=== PATIENT | female | born 1965 | race Caucasian/White ===

== ENCOUNTER 2016-11-27 14:07 | Emergency (ER) | payer BC ==
[2016-11-27] MEDS ORDERED: HYDROmorphone HCL 1 MG/ML SYR ONE (14:57)
[2016-11-27] MEDS ORDERED: ONDANSETRON HCL 4 MG/2 ML VIAL ONE (14:57)
[2016-11-27] MEDS ORDERED: LIDOCAINE HCL 1% 20 ML VIAL ONE (15:04)
--- NOTE | 2016-11-27 15:22 | RADIOLOGY REPORT ---
Four views of the right wrist demonstrate a transverse fracture of the distal radial metaphysis. There is approximately 5 mm of dorsal displacement and approximately 30 degrees of apex anterior angulation. I do not identify intraarticular involvement on these views. Nondisplaced ulnar styloid process fracture is also noted. The carpus appears intact. No other abnormality is identified. IMPRESSION: Displaced and angulated right Colles fracture as described. [facility]
[2016-11-27] MEDS ORDERED: ACETAMINOPHEN 325 MG TABLET PO ONE (16:13)
--- NOTE | 2016-11-27 17:00 | ER NURSING DOCUMENTATION ---
Nurse's Notes [facility] ([place], [place]) Name:Tawanna Cleveland Age:51 yrs Sex:Female :1965 Arrival Date:11/27/2016 Time:14:07 Bed6 Private MD: Diagnosis:Colles Fracture Presentation: 11/27 14:15 Presenting complaint: Patient states: FOOSH left wrist deformity. Transition of care: tg patient was not received from another setting of care. 14:15 Acuity: ANTOINE 2 tg 14:15 Method Of Arrival: Private Vehicle tg Triage Assessment: 14:17 General: Appears in no apparent distress, Behavior is cooperative. Pain: Complains of tg pain in right wrist. Neuro: Level of Consciousness is awake, alert. Cardiovascular: Capillary refill < 3 seconds. Respiratory: Respiratory effort is even, unlabored. :. Musculoskeletal: Range of motion limited in right wrist Bony deformity noted of right wrist. 16:10 Injury Description: Deformity sustained to right wrist is. tg Historical: - Allergies: No known drug Allergies; - Home Meds: 1. Advil Oral (Last dose: 11/27/2016 09:00) - PMHx: None; - PSHx: None; - Tetanus: < 10 years. - Ebola Screening: : Patient negative for fever greater than or equal to 101.5 degrees Fahrenheit, and additional compatible Ebola Virus Disease symptoms. Patient denies exposure to infectious person. Patient denies travel to an Ebola-affected area in the 21 days before illness onset. No symptoms or risks identified at this time. . - Immunization history: Flu Vaccine < 1 year. - Social history: Smoking status: Patient states was never smoker of tobacco. Screenin:17 Infectious Disease Risk Unable to Obtain. Abuse screen: Denies threats or abuse. Denies tg injuries from another. Nutritional screening: No deficits noted. Assessment: 15:33 Reassessment: Dr. Velásquez at bedside with C arm, right arm is in traction. tg Vital Signs: 14:16 BP 157 / 89; Pulse 98; Resp 16; Temp 98.4(O); Pulse Ox 94% ; Weight 81.65 kg (R); tg Height 5 ft. 8 in. (172.72 cm); Pain 8/10; 14:16 Body Mass Index 27.37 (81.65 kg, 172.72 cm) tg ED Course: 14:09 Patient arrived in ED. ds 14:13 Corby Davidson MD is Attending Physician. tl1 14:15 Panfilo Keene, RN is Primary Nurse. tg 14:15 Triage completed. tg 14:17 Valuables Remains with patient. tg 14:48 Port Xray Completed. ms 15:32 Assist Provider Assist provider with reduction of right wrist using traction, tg manipulation, Set up for procedure. Performed by Corby Davidson MD Immobilized with OCL splint, Patient tolerated well. 15:58 Geovanni Velásquez MD is Referral Physician. tl1 16:45 Sling applied to right arm. tg Administered Medications: 16:03 Drug: Tylenol 650 mg; Route: PO; tg 16:45 Follow up: Response: Pain is decreased tg Outcome: 16:02 Discharge ordered by . tl1 16:10 Discharged to home ambulatory. tg 16:50 Discharged to home ambulatory, with family. tg 16:50 Condition: stable 16:50 Discharge Assessment: Patient awake and alert. CMS intact in right hand 16:50 Instructed on discharge instructions, follow up and referral plans. medication usage, [facility] Prescriptions given X 2. 16:59 Patient left the ED. tg 06/02 09:55 Discharge F/U Call: Unable to reach: no answer st Signatures: Panfilo Keene, REZA RN Aleyda Mclaughlin RN RN Narcisa Nicole, Reg Reg criselda Jed Heather Smith ms tt Corby Davidson MD MD tl1
--- NOTE | 2016-11-27 19:10 | RADIOLOGY REPORT ---
Four views of the right wrist from the C-Arm in the operating room at 1545 hours are compared with films earlier on the same date. There has been interval closed reduction and splinting of the distal radius fracture. No other change is identified. IMPRESSION: Interval reduction and splinting of the right distal radius fracture. [facility]
--- NOTE | 2016-11-28 11:44 | CONSULTATION ---
DATE OF CONSULTATION: 11/28/16 REFERRING PHYSICIAN: Neptali Davidson MD [employer] LAYER HELPER: Geovanni Velásquez MD CHIEF COMPLAINT: Broken right wrist. HISTORY OF PRESENT ILLNESS: The patient is a 51-year-old female who was hiking when she fell onto her right dominant outstretched hand, injuring her right wrist. There was obvious deformity, and she was brought into the Emergency Room where she was noted to have a fracture of the right distal radius. She denies other injuries associated with her fall. PAST MEDICAL HISTORY: Essentially unremarkable. PAST SURGICAL HISTORY: Negative. MEDICATIONS: None on a regular basis, although she occasionally takes Advil. ALLERGIES: No known drug allergies. SOCIAL HISTORY: The patient [place] from [place] of state and is a nonsmoker. FAMILY HISTORY: Noncontributory. REVIEW OF SYSTEMS: Negative for any syncopal or near syncopal episode related to her fall. She has not had any other recent illness and the review of systems is otherwise noncontributory. PHYSICAL EXAMINATION GENERAL: Well-appearing female in no apparent distress, alert and oriented x3. RIGHT WRIST: Obvious deformity with tenderness to palpation adjacent to the distal radius. She does have sensation intact throughout to light touch with brisk capillary refill distally, and a 2+ radial pulse. IMAGING: Plain radiographs of the wrist reveal an extraarticular fracture of the distal radius with about 40 degrees of apex volar angulation. There does appear to be dorsal comminution on the lateral radiograph. This is confirmed on the post reduction film as well. ASSESSMENT: Extraarticular fracture of the right distal radius. PLAN: We discussed the treatment options for this fracture with the patient. This fracture pattern is such that it is likely that she will require open reduction, internal fixation. We discussed that with her, and performed a closed reduction under hematoma block. The patient later elected to follow up at home and monitor the fracture to see if there is any movement of the position and proceed with surgical fixation should that be the case. She will therefore follow up with us PRN. WILTON
--- NOTE | 2016-11-28 13:29 | PROCEDURE NOTE ---
DATE OF PROCEDURE: 11/28/16 SURGEON: Geovanni Velásquez MD DIAGNOSIS: Angulated fracture of the right distal radius. PROCEDURE PERFORMED: Closed reduction under a hematoma block. INDICATION FOR PROCEDURE: The patient is a 51-year-old female who sustained a fall onto her right dominant outstretched hand, sustaining an extraarticular but angulated fracture of the right distal radius. DESCRIPTION OF PROCEDURE: After informed consent was obtained, a hematoma block was carried out under sterile prep using a mixture of 0.5% Marcaine and 1 % Lidocaine. After a few minute, the patient exhibited adequate anesthesia, and at that time the right upper extremity was suspended in finger traps with 10 pounds of counter traction on the upper arm. A gentle reduction maneuver was performed, and then C-arm fluoroscopy was used to verify proper alignment of the fracture. She was then placed into a well-padded sugar tong splint with a 3 point mold . The patient tolerated procedure well and was discharged from the Emergency Department in good condition. WILTON
--- NOTE | 2016-11-29 17:00 | ER PHYSICIAN DOCUMENTATION ---
Physician Documentation [facility] Name:Tawanna Cleveland Age:51 yrs Sex:Female :1965 Arrival Date:11/27/2016 Time:14:07 Bed6 Private MD: Corby Bethea Disposition: 11/28 11:00 Chart complete. tl1 Disposition: 11/27/16 16:02 Discharged to Home/Self Care. Impression: Colles Fracture. - Condition is Good. - Discharge Instructions: COLLES FRACTURE, Reduction Required. - Prescriptions for [place] 5- 325 mg Oral Tablet - take 1 tablet by ORAL route every 6 hours As needed; 20 tablet. Zofran 4 mg Oral Tablet - take 1-2 tablet by ORAL route every 4-6 hours As needed; 10 tablet. - Medical Reconciliation form form. - Follow up: Geovanni Velásquez MD; When: 1 - 2 days; Reason: Recheck today's complaints, Continuance of care. - Problem is new. - Symptoms have improved. HPI: 11/27 14:10 This 51 yrs old Female presents to ER via Private Vehicle with complaints of tl1 Wrist Injury - rt. 14:10 The patient or guardian reports deformity, pain. The complaints affect the right wrist tl1 diffusely. Context: The problem was sustained outdoors, resulted from a fall, while walking. Onset: The symptom(s)/episode began/occurred suddenly, just prior to arrival. Modifying factors: The symptoms are alleviated by holding still, the symptoms are aggravated by movement. Compartment Syndrome negative for numbness. 14:15 Stumbled while hiking, landed on outstretched hands. No other injury. No n/w/t.. tl1 Historical: - Allergies: No known drug Allergies; - Home Meds: 1. Advil Oral (Last dose: 11/27/2016 09:00) - PMHx: None; - PSHx: None; - Tetanus: < 10 years. - Ebola Screening: : Patient negative for fever greater than or equal to 101.5 degrees Fahrenheit, and additional compatible Ebola Virus Disease symptoms. Patient denies exposure to infectious person. Patient denies travel to an Ebola-affected area in the 21 days before illness onset. No symptoms or risks identified at this time. . - Immunization history: Flu Vaccine < 1 year. - Social history: Smoking status: Patient states was never smoker of tobacco. ROS: 15:00 MS/extremity: Positive for pain, swelling, tenderness, of the right wrist. tl1 15:00 All other systems are negative. Exam: 14:20 Hand exam: Exam is positive for deformity, pain, swelling, tenderness, ROM: limited tl1 active range of motion, limited passive range of motion, in the right wrist, Circulation is intact in all extremities. sensation intact. 14:20 Skin: Exam negative for acute changes. 14:20 Constitutional: The patient appears alert, awake, uncomfortable. 14:20 Head/face: Exam is negative for acute changes. 14:20 Neck: ROM/movement: is normal, is supple. 14:20 Cardiovascular: Rate: normal. 14:20 Respiratory: Respirations: normal. 14:20 Neuro: Exam negative for acute changes. Vital Signs: 14:16 BP 157 / 89; Pulse 98; Resp 16; Temp 98.4(O); Pulse Ox 94% ; Weight 81.65 kg (R); tg Height 5 ft. 8 in. (172.72 cm); Pain 8/10; 14:16 Body Mass Index 27.37 (81.65 kg, 172.72 cm) tg MDM: 14:12 Patient medically screened. tl1 14:20 Differential diagnosis: closed fracture. Data reviewed: vital signs, nurses notes, tl1 radiologic studies, plain films, and as a result, I will discharge patient. Counseling: I had a detailed discussion with the patient and/or guardian regarding: the historical points, exam findings, and any diagnostic results supporting the discharge/admit diagnosis, radiology results, the need for outpatient follow up, to return to the emergency department if symptoms worsen or persist or if there are any questions or concerns that arise at home. Medication response: The patient's symptoms have improved. Physician consultation: Geovanni Velásquez MD was called at 17:00, was contacted at 17:00, regarding patient's condition, need to come to ED to see patient, and will see patient immediately. 11/27 15:32 Order name: WRIST; [place] [id number] EDMS 11/28 07:13 Order name: FLUOROSCOPY, UP TO 1 [id number] EDMS 11/27 15:56 Order name: Ice Packs; Complete Time: 15:56 tg 11/27 15:56 Order name: ORTHO: Sling; Complete Time: 16:03 tg Dispensed Medications: 16:03 Drug: Tylenol 650 mg; Route: PO; tg 16:45 Follow up: Response: Pain is decreased tg Signatures: Panfilo Keene RN RN tg Nesly Varma RN RN Corby Davidson MD MD tl1
== END 2016-11-27 17:00 | disposition home or self-care (01) ==
LOC: ER 14:07
DX: S52.531A Colles' fracture of right radius, initial encounter for closed fracture (principal); W19.XXXA Unspecified fall, initial encounter; Y92.838 Other recreation area as the place of occurrence of the external cause; Y93.01 Activity, walking, marching and hiking
CPT/HCPCS: 76000; 99284; J1170; J2405